=== PATIENT | female | born 1970 | race American Indian/Alaskan Native ===

== ENCOUNTER 2017-05-08 11:41 | Emergency (ER) | payer MEDICAID ==
[2017-05-08 11:42] VITALS: BMI 26.9
[2017-05-08 11:52] VITALS: RESP 14; O2SAT 100
[2017-05-08] MEDS ORDERED: Sodium Chloride 0.9% 500 ML IV ONE (12:14)
[2017-05-08] MEDS ORDERED: Sodium Chloride 0.9% 1,000 ML IV ONE (12:14)
--- NOTE | 2017-05-08 12:19 | C.PDOC ---
History Of Present Illness 46 year old female presents to ED for evaluation of worsening cough for the past 3 days and generalized weakness and malaise for the past week. Pt states she is supposed to be taking Prednisone 5mg daily for Lupus but has not taken it for a week due to nausea, post tussive vomiting, and fever. Notes that she has history of asthma, but has never had asthma exacerbation. Denies chest pain , or shortness of breath. Time Seen by Provider: 05/08/17 12:00 Chief Complaint (Nursing): Flu-like Symptoms History Per: Patient History/Exam Limitations: no limitations Onset/Duration Of Symptoms: Days Current Symptoms Are (Timing): Still Present Sick Contacts (Context): None Associated Symptoms: Fever, Nausea, Vomiting. denies: Diarrhea Ear Symptoms: Bilateral: None Recent travel outside of the [place]: No Additional History Per: Patient Past Medical History Reviewed: Historical Data, Nursing Documentation, Vital Signs Vital Signs: Last Vital Signs Temp 98.1 F 05/08/17 14:50 Pulse 75 05/08/17 14:50 Resp 14 05/08/17 14:50 BP 106/73 05/08/17 14:50 Pulse Ox 100 05/08/17 14:55 - Medical History PMH: Anemia, Arthritis, Asthma, Back Problems, Cardia Arrhythmia Denies: Chronic Kidney Disease Family History: States: Unknown Family Hx - Social History Hx Tobacco Use: Yes Hx Alcohol Use: Yes Hx Substance Use: No - Immunization History Hx Tetanus Toxoid Vaccination: Yes Hx Influenza Vaccination: Yes (03/2017) Hx Pneumococcal Vaccination: No Review Of Systems Except As Marked, All Systems Reviewed And Found Negative. Constitutional: Positive for: Fever, Weakness, Malaise Cardiovascular: Negative for: Chest Pain, Palpitations Respiratory: Positive for: Cough. Negative for: Shortness of Breath, Wheezing Gastrointestinal: Positive for: Nausea, Vomiting. Negative for: Abdominal Pain , Diarrhea Neurological: Negative for: Headache, Dizziness Physical Exam - Physical Exam Appears: Non-toxic, Other (ill appearing) Skin: Normal Color, Warm, Dry Head: Atraumatic, Normacephalic Eye(s): bilateral: Normal Inspection Ear(s): Bilateral: Normal Nose: Normal Oral Mucosa: Moist Throat: Normal, No Erythema, No Exudate, No Drooling Neck: Normal ROM, Supple Chest: Symmetrical Cardiovascular: Rhythm Regular, No Murmur Respiratory: Normal Breath Sounds, No Rales, No Rhonchi, No Wheezing Gastrointestinal/Abdominal: Soft, No Tenderness Extremity: Normal ROM, No Deformity Neurological/Psych: Oriented x3, Normal Speech ED Course And Treatment - Laboratory Results Result Diagrams: 05/08/17 13:30 05/08/17 13:30 O2 Sat by Pulse Oximetry: 100 (RA) Pulse Ox Interpretation: Normal - Radiology CXR: Interpreted by Me CXR Interpretation: Yes: No Acute Disease Progress - Re-Evaluation Re-evaluation Note: 05/08/17 14:44 NOW CO GEN MYALGIA, ARTHRALGIA. NO IMPROVE W TORADOL. VSS. CXR, LABS NEG. REQUESTING "SOMETHING STRONGER". PER PRIOR ER VISIT, PT HAS PAIN NORAH MD. 05/08/17 14:53 [facility] REVIEWED 04/26/2017 3 04/26/2017 ZOLPIDEM TARTRATE 10 MG TABLET 30.0 04/15/2017 3 04/15/2017 ENDOCET 10-325 MG TABLET 90.0 03/19/2017 3 03/19/2017 ENDOCET 10-325 MG TABLET 90.0 03/18/2017 3 03/18/2017 ZOLPIDEM TARTRATE 10 MG TABLET 30.0 05/08/17 15:58 PT REQUESTING DC HOME 05/08/17 16:06 D/W DR RAMIRES AWARE OF ER FINDINGS. ADVISES FU OFFICE SCHEDULED, TAPER STEROID BY 5 MG PER DAY UNTIL REACHES 5 MG 05/08/17 16:22 PS CURRENTLY HAS NO PAIN MED DOC. REFERRAL DR SAMMI HUGHES. - Data Reviewed Data Reviewed: Lab, Diagnostic imaging, Old records Medical Decision Making Medical Decision Making: Plan: * Blood work * Urinalysis * Influenza AB * CXR * Duoneb, Toradol, IV fluids * Reassess Disposition Counseled Patient/Family Regarding: Studies Performed, Diagnosis, Need For Followup, Rx Given - Disposition Referrals: Abiel Mccullough MD [Staff Provider] - Praful Ramires MD [Staff Provider] - Disposition: HOME/ ROUTINE Disposition Time: 15:58 Condition: IMPROVED Additional Instructions: START PREDNISONE 25 MG ON 05/09, TAPER BY 5 MG DAILY UNTIL AT PREDNISONE 5 MG DAILY PREVIOUSLY PRESCRIBED. SEE DR RAMIRES SCHEDULED. Prescriptions: Ondansetron [Zofran Odt] 4 mg PO TID PRN #9 odt PRN Reason: Nausea/Vomiting oxyCODONE/Acetaminophen [Percocet 5/325 mg Tab] 1 tab PO QID PRN #14 tab PRN Reason: Pain predniSONE [predniSONE Tab] 10 mg PO DAILY #12 tab predniSONE [predniSONE Tab] 5 mg PO DAILY #30 tab Instructions: Autoimmune Disease (ED) Forms: [facility] (Nepali) - Clinical Impression Clinical Impression: SLE exacerbation, Arthralgia - Scribe Statement The provider has reviewed the documentation as recorded by the Albaibcheyenne Alvarez All medical record entries made by the Albaibcheyenne were at my direction and personally dictated by me. I have reviewed the chart and agree that the record accurately reflects my personal performance of the history, physical exam, medical decision making, and the department course for this patient. I have also personally directed, reviewed, and agree with the discharge instructions and disposition.
[2017-05-08] MEDS ORDERED: Albuterol-Ipratrop 3 mg / 0.5 (3 ml) UD ONE (12:32)
[2017-05-08 13:38] LABS: BASO % 0.5 % (0.0-2.0); EOS % 0.5 % (0.0-4.0); HEMOGLOBIN 13.8 g/dL (11.0-16.0); LYMPH # 2.7 K/uL (1.0-4.3); LYMPH % 36.8 % (20.0-40.0); MEAN CELL VOLUME 88.1 fL (81.0-99.0); MEAN CORPUSCULAR HEMOGLOBIN 31.2 pg (27.0-31.0); MEAN CORPUSCULAR HGB CONC 35.4 g/dL (33.0-37.0); MEAN PLATELET VOLUME 7.8 fL (7.2-11.7); MONO # 0.7 K/uL (0.0-0.8); MONO % 9.2 % (0.0-10.0); NEUT # 3.9 K/uL (1.8-7.0); RBC 4.44 Mil/uL (3.80-5.20); RED CELL DISTRIBUTION WIDTH 13.6 % (11.5-14.5); WHITE BLOOD COUNT 7.4 K/uL (4.8-10.8)
[2017-05-08 14:08] LABS: ALB/GLOB RATIO 1.3 (1.0-2.1); ALBUMIN 4.6 g/dL (3.5-5.0); ALT/SGPT 28 U/L (9-52); AST/SGOT 24 U/L (14-36); BLOOD UREA NITROGEN 13 mg/dL (7-17); CALCIUM 9.4 mg/dl (8.6-10.4); GFR AFRICAN-AMERICAN > 60; GFR NON-AFRICAN AMERICAN 60
[2017-05-08 14:30] LABS: SQUAMOUS EPITHIAL 1 /hpf (0-5); URINE BACTERIA OCC (<OCC); URINE BILIRUBIN NEGATIVE (NEGATIVE); URINE BLOOD 1+ (NEGATIVE); URINE CLARITY Clear (Clear); URINE COLOR Yellow (YELLOW); URINE GLUCOSE (UA) NORMAL (Normal); URINE LEUKOCYTE ESTERASE NEG Leu/uL (Negative); URINE NITRATE NEGATIVE (NEGATIVE); URINE PROTEIN NEGATIVE (NEGATIVE); URINE UROBILINOGEN NORMAL mg/dL (0.2-1.0)
[2017-05-08] MEDS ORDERED: HYDROmorphone 0.5 mg/0.5 ml ISec IVP STA (14:45)
[2017-05-08 14:51] VITALS: BP 106/73; PULSE 75; TEMP 98.1
[2017-05-08] MEDS: Albuterol-Ipratrop 3 mg / 0.5 (3 ml) UD IH SCH (15:06)
--- NOTE | 2017-05-08 15:24 | RAD ---
PROCEDURE: CHEST RADIOGRAPH, 1 VIEW HISTORY: COUGH HO SLE COMPARISON: None available. FINDINGS: LUNGS: Clear. PLEURA: No pneumothorax or pleural fluid seen. CARDIOVASCULAR: Normal. OSSEOUS STRUCTURES: No significant abnormalities. VISUALIZED UPPER ABDOMEN: Normal. OTHER FINDINGS: None. IMPRESSION: No active disease.
== END 2017-05-08 17:10 | disposition home or self-care (01) ==
LOC: C.ER 11:41
DX: M32.9 Systemic lupus erythematosus, unspecified (principal); M25.50 Pain in unspecified joint
CPT/HCPCS: 71010; 80053; 81001; 85025; 87040; 87804; 94640; 96361; 96374; 99284; J1885; J7040